=== PATIENT | male | born 1995 | race Caucasian/White ===

== ENCOUNTER 2019-03-30 00:53 | Emergency (ER) | payer OTHER ==
[2019-03-30] MEDS ORDERED: Albuterol/Ipratropium 3.0-0.5 MG/3 ML Neb Soln NEB ONE (01:22)
--- NOTE | 2019-03-30 01:22 | EDM.PDOC ---
ED HPI GENERAL MEDICAL PROBLEM - General Chief Complaint: General Stated Complaint: HEADACHE AND SINUS INFECTION Time Seen by Provider: 03/30/19 01:14 - History of Present Illness INITIAL COMMENTS - FREE TEXT/NARRATIVE: HISTORY AND PHYSICAL: History of present illness: The patient is a 23-year-old male who presents with several days of sinus drainage and congestion pressure bilaterally left greater than right a cough and a sore throat. He has not had a fever per se but he has felt feverish. He is taken zwuo-lkl-nmnhazs NyQuil and Tylenol as well as cold and sinus meds. He says he has been hydrating and not having any vomiting or diarrhea. He does smoke cigarettes but has no cardiac or pulmonary disease. He says that he has felt better since he has been outside in the cool air this evening. Review of systems: As per history of present illness and below otherwise all systems reviewed and negative. Past medical history: As per history of present illness and as reviewed below otherwise noncontributory. Surgical history: As per history of present illness and as reviewed below otherwise noncontributory. Social history: No reported history of drug or alcohol abuse. Family history: As per history of present illness and as reviewed below otherwise noncontributory. Physical exam: General: Well-developed well-nourished thin man who is nontoxic and vital signs are noted by me. He is not breathless on evaluation or hoarse HEENT: Atraumatic, normocephalic,, negative for conjunctival pallor or scleral icterus, mucous membranes moist, throat clear of exudates but there is some posterior oropharyngeal erythema, neck supple, nontender, trachea midline. There is no cervical adenopathy and no discrete sinus tenderness on palpation. TMs are dull bilaterally and there is cerumen in the external canal, there is no nuchal rigidity, the turbinates are slightly boggy bilaterally Lungs: Clear to auscultation with some scattered rhonchi and wheezing, breath sounds equal bilaterally, chest nontender. Heart: S1S2, regular rate and rhythm no overt murmurs Abdomen: Soft, nondistended, nontender. NABS Pelvis: Deferred Genitourinary: Deferred. Rectal: Deferred. Extremities: Atraumatic, full range of motion without defects or deformities and no pedal edema Neurovascular unremarkable. Neuro: Awake, alert, oriented. Cranial nerves II through XII unremarkable. Cerebellum unremarkable. Motor and sensory unremarkable throughout. Exam nonfocal. Diagnostics: Rapid strep Therapeutics: DuoNeb spacer and teaching Impression: Bronchitis /sinusitis/pharyngitis Definitive disposition and diagnosis as appropriate pending reevaluation and review of above. Treatments PAN CLEANER: Reports: Acetaminophen - Related Data Allergies Allergy/AdvReac Type Severity Reaction Status Date / Time Unable to Assess Allergy Unverified 03/30/19 01:09 Home Meds: Home Meds . [No Known Home Meds] 03/30/19 [History] Past Medical History - Past Health History Medical/Surgical History: Denies Medical/Surgical History Social & Family History - Tobacco Use Smoking Status *Q: Current Every Day Smoker Years of Tobacco use: 7 Packs/Tins Daily: 1 - Caffeine Use Caffeine Use: Reports: Energy Drinks - Recreational Drug Use Recreational Drug Use: Yes Drug Use in Last 12 Months: Yes Recreational Drug Type: Reports: Marijuana/Hashish Recreational Drug Use Frequency: Not Used In Over 6 Months ED ROS GENERAL - Review of Systems Review Of Systems: ROS reveals no pertinent complaints other than HPI. ED EXAM, GENERAL - Physical Exam Exam: See Below (See dictation) Course - Vital Signs Last Recorded V/S: Last Vital Signs Temp 36.1 C 03/30/19 01:06 Pulse 88 03/30/19 01:06 Resp 16 03/30/19 01:06 BP 145/91 H 03/30/19 01:06 Pulse Ox 96 03/30/19 01:06 - Orders/Labs/Meds Orders: Active Orders 24 hr Category Date Time Status Communication Order [RC] STAT Care 03/30/19 01:22 Active RT Aerosol Therapy [RC] ASDIRECTED Care 03/30/19 01:22 Active CULTURE STREP A CONFIRMATION [] Stat Lab 03/30/19 00:50 Results STREP SCRN A RAPID W CULT CONF [] Stat Lab 03/30/19 00:50 Results Meds: Medications Discontinued Medications Generic Name Dose Route Start Last Admin Trade Name Freq PRN Reason Stop Dose Admin Albuterol/Ipratropium 3 ml 03/30/19 01:22 03/30/19 01:55 Duoneb 3.0-0.5 Mg/3 Ml NEB 03/30/19 01:23 3 ml ONETIME ONE Administration Departure - Departure Time of Disposition: 02:33 Disposition: Home, Self-Care 01 Condition: Good Clinical Impression: Bronchitis Sinusitis Qualifiers: Sinusitis location: unspecified location Chronicity: unspecified Qualified Code (s): J32.9 - Chronic sinusitis, unspecified Pharyngitis Qualifiers: Pharyngitis/tonsillitis etiology: unspecified etiology Qualified Code(s): J02.9 - Acute pharyngitis, unspecified - Discharge Information Referrals: PCP,None [Primary Care Provider] - Forms: ED Department Discharge Additional Instructions: The following information is given to patients seen in the emergency department who are being discharged to home. This information is to outline your options for follow-up care. We provide all patients seen in our emergency department with a follow-up referral. The need for follow-up, as well as the timing and circumstances, are variable depending upon the specifics of your emergency department visit. If you don't have a primary care physician on staff, we will provide you with a referral. We always advise you to contact your personal physician following an emergency department visit to inform them of the circumstance of the visit and for follow-up with them and/or the need for any referrals to a consulting specialist. The emergency department will also refer you to a specialist when appropriate. This referral assures that you have the opportunity for followup care with a specialist. All of these measure are taken in an effort to provide you with optimal care, which includes your followup. Under all circumstances we always encourage you to contact your private physician who remains a resource for coordinating your care. When calling for followup care, please make the office aware that this follow-up is from your recent emergency room visit. If for any reason you are refused follow-up, please contact the [facility] emergency department at and ask to speak to the emergency department charge nurse. [facility] Primary care- Internal Medicine and Family [address] [address] Push hydration and rest and use [id number] Tylenol or ibuprofen for pain and fever. Please use rwjc-nck-mzelzxz Claritin or Abi for sinus fluid to help dry that up as well as auwz-hqn-tjycjlo Flonase to open her nasal passages and allow drainage. Sleep on 2 pillows to promote for drainage of fluid and prevent postnasal drip and cough. Use the Ventolin/albuterol inhaler you have been given with a spacer 1-2 puffs every 6 hours as needed for coughing and congestion feeling. Take the Medrol Dosepak as prescribed Please call and schedule a follow-up appointment in our clinic for further care and evaluation. The symptoms may persist for the next several days to one week but the patient and use the care plan as discussed. Return to ER as needed and as discussed - My Orders Last 24 Hours: My Active Orders 03/30/19 00:50 CULTURE STREP A CONFIRMATION [RM] Stat STREP SCRN A RAPID W CULT CONF [RM] Stat 03/30/19 01:22 Communication Order [RC] STAT RT Aerosol Therapy [RC] ASDIRECTED - Assessment/Plan Last 24 Hours: My Active Orders 03/30/19 00:50 CULTURE STREP A CONFIRMATION [RM] Stat STREP SCRN A RAPID W CULT CONF [RM] Stat 03/30/19 01:22 Communication Order [RC] STAT RT Aerosol Therapy [RC] ASDIRECTED
== END 2019-03-30 02:46 | disposition home or self-care (01) ==
LOC: MW.ED 00:53
DX: J40 Bronchitis, not specified as acute or chronic (principal); J32.9 Chronic sinusitis, unspecified; J02.9 Acute pharyngitis, unspecified; F17.210 Nicotine dependence, cigarettes, uncomplicated
CPT/HCPCS: 87081; 87880-QW; 94640; 99284-25; J7620-GY

== ENCOUNTER 2019-12-01 14:49 | Emergency (ER) | payer SELFPAY ==
--- NOTE | 2019-12-01 14:55 | EDM.PDOC ---
ED HPI GENERAL MEDICAL PROBLEM - General Stated Complaint: SPOKE TO NURSE Time Seen by Provider: 12/01/19 14:54 Source of Information: Reports: Patient History Limitations: Reports: No Limitations - History of Present Illness INITIAL COMMENTS - FREE TEXT/NARRATIVE: Patient is a 24-year-old male who is complaining of having diarrhea for the past 2 weeks. Patient recently returned from [place]. He describes his diarrhea as having an odor consistent with sulfur. Over the last 24 hours he has had 3 fairly large bowel movements. 2 of these had some blood. One last night and had blood mixed in with stool it was bright red. He had about 1/4 cup of blood without stool earlier today. Patient states he drinks energy drinks continuously all day. He has never had similar symptoms before. He is stating recently he has been feeling lightheaded with standing. He denies any dysuria or increased urinary frequency. Denies any tarry stools. Duration: Week(s): (2) Severity: Mild Improves with: Reports: None Worsens with: Reports: Other (Bowel movements) Associated Symptoms: Denies: Loss of Appetite, Malaise, Nausea/Vomiting, Shortness of Breath - Related Data Allergies Allergy/AdvReac Type Severity Reaction Status Date / Time cefprozil [From Cefzil] Allergy Diarrhea Verified 12/01/19 15:03 Home Meds: Home Meds . [No Known Home Meds] 03/30/19 [History] Past Medical History - Past Health History Medical/Surgical History: Denies Medical/Surgical History Social & Family History - Caffeine Use Caffeine Use: Reports: Energy Drinks ED ROS GENERAL - Review of Systems Review Of Systems: Comprehensive ROS is negative, except as noted in HPI. ED EXAM, GI/ABD - Physical Exam Exam: See Below Text/Narrative:: Exam: See Below Exam Limited By: No Limitations Head: Atraumatic Neck: Normal Inspection. No: Carotid Bruit, Lymphadenopathy (R) Respiratory/Chest: No Respiratory Distress, Lungs Clear, Normal Breath Sounds, No Accessory Muscle Use. No: Chest Non-Tender Cardiovascular: Normal Peripheral Pulses, Regular Rate, Rhythm, No Edema, No JVD GI/Abdominal: Normal Bowel Sounds, soft nontender no rebound no guarding no masses. Back Exam: Normal Inspection. No: CVA Tenderness (R) Extremities: Normal Inspection. No: No Pedal Edema Neurological: Alert, Oriented, Normal Cognition Psychiatric: Normal Affect Skin Exam: Warm Lymphatic: No Adenopathy Course - Vital Signs Text/Narrative:: Orthostatic vital signs were negative. Patient's CBC shows he is not anemic. He was given a liter of fluid. Patient is able to take p.o. fluids but has produced no stool for analysis. I am going to start him on Bactrim and recommend he try some gdjz-nsx-pgzhfox Imodium if needed for the diarrhea. He is to return to ER if having increased bleeding or worse otherwise follow-up with a PCP for GI or surgical referral for colonoscopy. Last Recorded V/S: Last Vital Signs Temp 36.3 C 12/01/19 14:59 Pulse 81 12/01/19 15:23 Resp 16 12/01/19 14:59 BP 137/90 12/01/19 15:23 Pulse Ox 99 12/01/19 14:59 - Orders/Labs/Meds Orders: Active Orders 24 hr Category Date Time Status Fecal Occult Blood Collection [RC] ASDIRECTED Care 12/01/19 15:14 Active Orthostatic Vital Signs [RC] ASDIRECTED Care 12/01/19 15:14 Active FECAL LACTOFERRIN [MREF] Stat Lab 12/01/19 15:12 Ordered Labs: Laboratory Tests 12/01/19 12/01/19 Range/Units 15:17 15:17 WBC 6.95 (4.0-11.0) K/uL RBC 4.79 (4.50-5.90) M/uL Hgb 15.1 (13.0-17.0) g/dL Hct 45.0 (38.0-50.0) % MCV 93.9 (80.0-98.0) fL MCH 31.5 (27.0-32.0) pg MCHC 33.6 (31.0-37.0) g/dL RDW Std Deviation 46.3 (28.0-62.0) fl RDW Coeff of Jae 14 (11.0-15.0) % Plt Count 193 (150-400) K/uL MPV 11.60 (7.40-12.00) fL Neut % (Auto) 64.9 (48.0-80.0) % Lymph % (Auto) 21.9 (16.0-40.0) % [place] % (Auto) 11.4 (0.0-15.0) % Eos % (Auto) 1.4 (0.0-7.0) % Baso % (Auto) 0.4 (0.0-1.5) % Neut # (Auto) 4.5 (1.4-5.7) K/uL Lymph # (Auto) 1.5 (0.6-2.4) K/uL [place] # (Auto) 0.8 (0.0-0.8) K/uL Eos # (Auto) 0.1 (0.0-0.7) K/uL Baso # (Auto) 0.0 (0.0-0.1) K/uL Nucleated RBC % 0.0 /100WBC Nucleated RBCs # 0 K/uL Sodium 142 (136-148) mmol/L Potassium 3.8 (3.5-5.1) mmol/L Chloride 106 (98-107) mmol/L Carbon Dioxide 27.8 (21.0-32.0) mmol/L BUN 15 (7.0-18.0) mg/dL Creatinine 1.0 (0.8-1.3) mg/dL Est Cr Clr Drug Dosing 132.68 mL/min Estimated GFR (MDRD) > 60.0 ml/min Glucose 90 (74-106) mg/dL Calcium 9.4 (8.5-10.1) mg/dL Total Bilirubin 0.7 (0.2-1.0) mg/dL AST 19 (15-37) IU/L ALT 26 (14-63) IU/L Alkaline Phosphatase 93 (46-116) U/L Total Protein 7.5 (6.4-8.2) g/dL Albumin 4.5 (3.4-5.0) g/dL Globulin 3.0 (2.6-4.0) g/dL Albumin/Globulin Ratio 1.5 (0.9-1.6) Meds: Medications Discontinued Medications Generic Name Dose Route Start Last Admin Trade Name Freq PRN Reason Stop Dose Admin Sodium Chloride 1,000 mls @ 999 mls/hr 12/01/19 15:13 12/01/19 15:34 Normal Saline IV 12/01/19 16:13 999 mls/hr .BOLUS ONE Administration Departure - Departure Time of Disposition: 16:33 Disposition: Home, Self-Care 01 Condition: Good Clinical Impression: Bleeding, Diarrhea - Discharge Information Instructions: Bloody Diarrhea Referrals: PCP,None [Primary Care Provider] - Additional Instructions: Return to ER if increased amount of bleeding or feeling worse. Follow-up with PCP for GI or surgical referral for possible colonoscopy. Antibiotic as prescribed. [id number] Imodium if needed. Care Plan Goals: The following information is given to patients seen in the emergency department who are being discharged to home. This information is to outline your options for follow-up care. We provide all patients seen in our emergency department with a follow-up referral. The need for follow-up, as well as the timing and circumstances, are variable depending upon the specifics of your emergency department visit. If you don't have a primary care physician on staff, we will provide you with a referral. We always advise you to contact your personal physician following an emergency department visit to inform them of the circumstance of the visit and for follow-up with them and/or the need for any referrals to a consulting specialist. The emergency department will also refer you to a specialist when appropriate. This referral assures that you have the opportunity for follow-up care with a specialist. All of these measure are taken in an effort to provide you with optimal care, which includes your follow-up. Under all circumstances we always encourage you to contact your private physician who remains a resource for coordinating your care. When calling for follow-up care, please make the office aware that this follow-up is from your recent emergency room visit. If for any reason you are refused follow-up, please contact the [facility] Emergency Department at and asked to speak to the emergency department charge nurse. Sepsis Event Note - Focused Exam Vital Signs: Vital Signs Temp Pulse Resp BP Pulse Ox 12/01/19 15:23 81 137/90 12/01/19 14:59 36.3 C 93 16 141/84 H 99 Date Exam was Performed: 12/01/19 Time Exam was Performed: 16:29 - My Orders Last 24 Hours: My Active Orders 12/01/19 15:12 FECAL LACTOFERRIN [MREF] Stat 12/01/19 15:14 Fecal Occult Blood Collection [RC] ASDIRECTED Orthostatic Vital Signs [RC] ASDIRECTED - Assessment/Plan Last 24 Hours: My Active Orders 12/01/19 15:12 FECAL LACTOFERRIN [MREF] Stat 12/01/19 15:14 Fecal Occult Blood Collection [RC] ASDIRECTED Orthostatic Vital Signs [RC] ASDIRECTED
[2019-12-01] MEDS ORDERED: Sodium Chloride 0.9% 1,000 ML IV ONE (15:13)
[2019-12-01 16:06] LABS: BLOOD UREA NITROGEN,BUN 15 mg/dL (7.0-18.0); CARBON DIOXIDE,CO2 27.8 mmol/L (21.0-32.0); CHLORIDE,CL 106 mmol/L (98-107); GLUCOSE RANDOM 90 mg/dL (74-106); POTASSIUM,K 3.8 mmol/L (3.5-5.1); SODIUM,NA 142 mmol/L (136-148)
== END 2019-12-01 16:49 | disposition home or self-care (01) ==
LOC: MW.ED 14:49
DX: R19.7 Diarrhea, unspecified (principal); K92.1 Melena; Z88.8 Allergy status to other drugs, medicaments and biological substances
CPT/HCPCS: 80053; 85025; 96360; 99284; J7030

== ENCOUNTER 2019-12-05 14:21 | Emergency (ER) | payer SELFPAY ==
[2019-12-05] MEDS ORDERED: Sodium Chloride 0.9% 1,000 ML IV ONE (15:22)
--- NOTE | 2019-12-05 15:30 | EDM.PDOC ---
ED HPI GENERAL MEDICAL PROBLEM - General Chief Complaint: Gastrointestinal Problem Stated Complaint: LOOSE STOOLS Time Seen by Provider: 12/05/19 14:22 Source of Information: Reports: Patient History Limitations: Reports: No Limitations - History of Present Illness INITIAL COMMENTS - FREE TEXT/NARRATIVE: HISTORY AND PHYSICAL: History of present illness: Patient is a 24-year-old male who presents to the ED today with concern of upper abdominal pain, diarrhea and blood in the stools. Patient states he was here in the ED and was given an antibiotic for the diarrhea but states at that time they were unable to collect a stool sample. Patient states since then he has been having 2 episodes of watery diarrhea and upper abdominal pain. Patient states after taking the antibiotic initially he did not have blood in the stools but starting again yesterday he has had 1 episode of blood in his stool and 1 episode earlier today. Patient states the blood is a little bit darker red and not bright red and he is unable to quantify how much blood. Patient states before 2 months ago he was drinking alcohol heavily and used to drink "bottles of it" daily. Patient states he did quit and has not had a single drink in the past 2 months. Denies any health history. Patient denies fever, chills, chest pain, shortness of breath, or cough. Denies headache, neck stiff ness, change in vision, syncope, or near syncope. Denies nausea, vomiting, or dysuria. Has not noted any blood in urine. Patient has been eating and drinking appropriately. Review of systems: As per history of present illness and below otherwise all systems reviewed and negative. Past medical history: As per history of present illness and as reviewed below otherwise noncontributory. Surgical history: As per history of present illness and as reviewed below otherwise noncontributory. Social history: See social history for further information Family history: As per history of present illness and as reviewed below otherwise noncontributory. Physical exam: General: Patient is alert, oriented, and in no acute distress. Patient laying comfortably on exam table. HEENT: Atraumatic, normocephalic, pupils equal and reactive bilaterally, negative for conjunctival pallor or scleral icterus, mucous membranes moist, TMs normal bilaterally, throat clear, neck supple, nontender, trachea midline. No drooling or trismus noted. No meningeal signs. No hot potato voice noted. Lungs: Mild wheezing to auscultation throughout lung barber, breath sounds equal bilaterally, chest nontender. Heart: S1S2, regular rate and rhythm without overt murmur Abdomen: Soft, nondistended, moderate tenderness of the periumbilical/upper abdomen without guarding, negative Aleman, negative rebound. Negative for masses or hepatosplenomegaly. Negative for costovertebral tenderness. Pelvis: Stable nontender. Genitourinary: Deferred. Rectal: Hemoccult negative. Tone intact. No obvious hemorrhoids, masses, or fissures. Skin: Intact, warm, dry. No lesions or rashes noted. Extremities: Atraumatic, negative for cords or calf pain. Neurovascular unremarkable. Neuro: Awake, alert, oriented. Cranial nerves II through XII unremarkable. Cerebellum unremarkable. Motor and sensory unremarkable throughout. Exam nonfocal. Notes: Hemeoccult negative. Patient was unable to leave a stool sample today in the ED. Stool collection supplies have been provided to him to leave a sample and return to our lab. Discussed importance for follow-up with general surgery as well as his primary care provider. Voices understanding and is agreeable to plan of care. Denies any further questions or concerns at this time. Diagnostics: CBC, CMP, UA, lipase, abdominal pelvic CT, Hemoccult, stool culture/shiga/campy , ova and parasite, C. difficile Therapeutics: Saline Prescription: Stool study RX and supplies Impression: Upper abdominal pain, unspecified H/O diarrhea H/O blood in stool Plan: 1. Stool collection supplies have been provided to you. Once you are able to leave a sample, return this to our lab for testing. 2. Follow-up with general surgery as well as your primary care provider as discussed. Return to the ED as needed and as discussed. 3. You can alternate ibuprofen and Tylenol as directed for pain and discomfort. Definitive disposition and diagnosis as appropriate pending reevaluation and review of above. Abdomen Pain Score (Numeric/FACES): 6 - Related Data Allergies Allergy/AdvReac Type Severity Reaction Status Date / Time cefprozil [From Cefzil] Allergy Diarrhea Verified 12/05/19 14:35 Home Meds: Home Meds Sulfamethoxazole/Trimethoprim [Bactrim Ds Tablet] 1 each PO BID #14 tablet 12/01 [Rx] Past Medical History - Past Health History Medical/Surgical History: Denies Medical/Surgical History - Infectious Disease History Infectious Disease History: Reports: None Social & Family History - Family History Family Medical History: Noncontributory - Tobacco Use Smoking Status *Q: Current Every Day Smoker Years of Tobacco use: 9 Packs/Tins Daily: 1 - Caffeine Use Caffeine Use: Reports: Energy Drinks - Recreational Drug Use Recreational Drug Use: Yes Recreational Drug Type: Reports: Marijuana/Hashish Recreational Drug Use Frequency: Rarely ED ROS GENERAL - Review of Systems Review Of Systems: Comprehensive ROS is negative, except as noted in HPI. ED EXAM, GENERAL - Physical Exam Exam: See Below (see dictation) Course - Vital Signs Last Recorded V/S: Last Vital Signs Temp 97.5 F 12/05/19 14:35 Pulse 91 12/05/19 14:35 Resp 17 12/05/19 14:35 BP 130/69 12/05/19 14:35 Pulse Ox 98 12/05/19 14:35 - Orders/Labs/Meds Orders: Active Orders 24 hr Category Date Time Status Hemoccult [Fecal Occult Blood Collection] [RC] Care 12/05/19 15:03 Active ASDIRECTED C DIFFICILE AG/TOXIN W/REFLEX [RM] Stat Lab 12/05/19 14:22 Ordered OVA & PARASITES BY IMMUNOASSAY [MREF] Stat Lab 12/05/19 14:22 Ordered STOOL CULTURE/SHIGA TOXIN [MREF] Stat Lab 12/05/19 14:22 Ordered Labs: Laboratory Tests 12/05/19 12/05/19 12/05/19 Range/Units 15:26 15:26 15:30 WBC 5.83 (4.0-11.0) K/uL RBC 4.62 (4.50-5.90) M/uL Hgb 14.5 (13.0-17.0) g/dL Hct 43.5 (38.0-50.0) % MCV 94.2 (80.0-98.0) fL MCH 31.4 (27.0-32.0) pg MCHC 33.3 (31.0-37.0) g/dL RDW Std Deviation 46.3 (28.0-62.0) fl RDW Coeff of Jae 13 (11.0-15.0) % Plt Count 206 (150-400) K/uL MPV 11.10 (7.40-12.00) fL Neut % (Auto) 59.6 (48.0-80.0) % Lymph % (Auto) 28.1 (16.0-40.0) % [place] % (Auto) 9.4 (0.0-15.0) % Eos % (Auto) 2.4 (0.0-7.0) % Baso % (Auto) 0.5 (0.0-1.5) % Neut # (Auto) 3.5 (1.4-5.7) K/uL Lymph # (Auto) 1.6 (0.6-2.4) K/uL [place] # (Auto) 0.6 (0.0-0.8) K/uL Eos # (Auto) 0.1 (0.0-0.7) K/uL Baso # (Auto) 0.0 (0.0-0.1) K/uL Nucleated RBC % 0.0 /100WBC Nucleated RBCs # 0 K/uL Sodium 143 (136-148) mmol/L Potassium 3.9 (3.5-5.1) mmol/L Chloride 105 (98-107) mmol/L Carbon Dioxide 27.6 (21.0-32.0) mmol/L BUN 19 H (7.0-18.0) mg/dL Creatinine 0.9 (0.8-1.3) mg/dL Est Cr Clr Drug Dosing 147.42 mL/min Estimated GFR (MDRD) > 60.0 ml/min Glucose 58 L (74-106) mg/dL Calcium 9.2 (8.5-10.1) mg/dL Total Bilirubin 0.2 (0.2-1.0) mg/dL AST 18 (15-37) IU/L ALT 27 (14-63) IU/L Alkaline Phosphatase 99 (46-116) U/L Total Protein 7.5 (6.4-8.2) g/dL Albumin 4.2 (3.4-5.0) g/dL Globulin 3.3 (2.6-4.0) g/dL Albumin/Globulin Ratio 1.3 (0.9-1.6) Lipase 89 (73-393) U/L Urine Color YELLOW Urine Appearance CLEAR Urine pH 6.0 (5.0-8.0) Ur Specific Garber <= 1.005 (1.001-1.035) Urine Protein NEGATIVE (NEGATIVE) mg/dL Urine Glucose (UA) NEGATIVE (NEGATIVE) mg/dL Urine Ketones NEGATIVE (NEGATIVE) mg/dL Urine Occult Blood NEGATIVE (NEGATIVE) Urine Nitrite NEGATIVE (NEGATIVE) Urine Bilirubin NEGATIVE (NEGATIVE) Urine Urobilinogen 0.2 (<2.0) EU/dL Ur Leukocyte Esterase NEGATIVE (NEGATIVE) Meds: Medications Discontinued Medications Generic Name Dose Route Start Last Admin Trade Name Sarah PRN Reason Stop Dose Admin Sodium Chloride 1,000 mls @ 999 mls/hr 12/05/19 15:22 12/05/19 15:34 Normal Saline IV 12/05/19 16:22 999 mls/hr BOLUS ONE Administration Departure - Departure Time of Disposition: 16:47 Disposition: Home, Self-Care 01 Clinical Impression: Upper abdominal pain, History of diarrhea, History of bloody stools - Discharge Information Referrals: PCP,Unobtain [Primary Care Provider] - Forms: ED Department Discharge Additional Instructions: The following information is given to patients seen in the emergency department who are being discharged to home. This information is to outline your options for follow-up care. We provide all patients seen in our emergency department with a follow-up referral. The need for follow-up, as well as the timing and circumstances, are variable depending upon the specifics of your emergency department visit. If you don't have a primary care physician on staff, we will provide you with a referral. We always advise you to contact your personal physician following an emergency department visit to inform them of the circumstance of the visit and for follow-up with them and/or the need for any referrals to a consulting specialist. The emergency department will also refer you to a specialist when appropriate. This referral assures that you have the opportunity for follow-up care with a specialist. All of these measure are taken in an effort to provide you with optimal care, which includes your follow-up. Under all circumstances we always encourage you to contact your private physician who remains a resource for coordinating your care. When calling for follow-up care, please make the office aware that this follow-up is from your recent emergency room visit. If for any reason you are refused follow-up, please contact the [facility] Emergency Department at and asked to speak to the emergency department charge nurse. [facility] [address] [place] [address] [facility] [address] [place] [address] [facility] - General Surgery, [facility] [address] [place] [address], [address] [place] [address] 1. Stool collection supplies have been provided to you. Once you are able to leave a sample, return this to our lab for testing. 2. Follow-up with general surgery as well as your primary care provider as discussed. The number has been provided above for you to call and set up an appointment time. Return to the ED as needed and as discussed. 3. You can alternate ibuprofen and Tylenol as directed for pain and discomfort. Sepsis Event Note - Evaluation Sepsis Screening Result: No Definite Risk - Focused Exam Vital Signs: Vital Signs Temp Pulse Resp BP Pulse Ox 12/05/19 14:35 97.5 F 91 17 130/69 98 Date Exam was Performed: 12/05/19 Time Exam was Performed: 16:45 - My Orders Last 24 Hours: My Active Orders 12/05/19 14:22 C DIFFICILE AG/TOXIN W/REFLEX [RM] Stat OVA & PARASITES BY IMMUNOASSAY [MREF] Stat STOOL CULTURE/SHIGA TOXIN [MREF] Stat 12/05/19 15:03 Hemoccult [Fecal Occult Blood Collection] [RC] ASDIRECTED - Assessment/Plan Last 24 Hours: My Active Orders 12/05/19 14:22 C DIFFICILE AG/TOXIN W/REFLEX [RM] Stat OVA & PARASITES BY IMMUNOASSAY [MREF] Stat STOOL CULTURE/SHIGA TOXIN [MREF] Stat 12/05/19 15:03 Hemoccult [Fecal Occult Blood Collection] [RC] ASDIRECTED
[2019-12-05 15:57] LABS: BLOOD UREA NITROGEN,BUN 19 mg/dL (7.0-18.0); CARBON DIOXIDE,CO2 27.6 mmol/L (21.0-32.0); CHLORIDE,CL 105 mmol/L (98-107); GLUCOSE RANDOM 58 mg/dL (74-106); LIPASE 89 U/L (73-393); POTASSIUM,K 3.9 mmol/L (3.5-5.1); SODIUM,NA 143 mmol/L (136-148)
--- NOTE | 2019-12-05 16:39 | CT ---
CT abdomen and pelvis Technique: Multiple axial sections were obtained from above the dome of the diaphragm inferiorly through the pubic symphysis. Intravenous contrast was utilized. No oral contrast has been given. Comparison: No prior abdominal imaging is available. Findings: Visualized lung bases show nothing acute. Liver contains no focal parenchymal abnormality. Spleen appears within normal limits. Adrenal glands show no nodule. Kidneys show symmetric contrast enhancement without hydronephrosis or mass. Gallbladder contains no calcified gallstones. Pancreas shows no discrete abnormality. Aorta shows no aneurysm. No retroperitoneal adenopathy or mesenteric abnormalities are seen. Appendix not definitely appreciated but no discrete inflammatory change is noted within the right lower quadrant. Other portions of the abdomen and pelvis also show no inflammatory change. Mild increased stool is noted throughout the colon. Bone window settings were reviewed which appear within normal limits for the patient's age. Impression: 1. Mild increased stool throughout the colon. 2. No additional abnormality is appreciated on CT study of the abdomen and pelvis. Diagnostic code #2 This report was dictated in [place] Standard Time
[2019-12-05] MEDS ORDERED: Iopamidol 755 Mg/ML 100 ML Bottle IVPUSH ONE (17:41)
== END 2019-12-05 17:15 | disposition home or self-care (01) ==
LOC: MW.ED 14:21
DX: R10.10 Upper abdominal pain, unspecified (principal); F17.210 Nicotine dependence, cigarettes, uncomplicated; Z88.8 Allergy status to other drugs, medicaments and biological substances
CPT/HCPCS: 36415; 74177; 80053; 81003; 83690; 85025; 96360; 99284; J7030; Q9967